=== PATIENT | male | born 1965 | race Caucasian/White ===

== ENCOUNTER 2019-08-10 09:55 | Emergency (ER) | payer MEDICAID ==
[2019-08-10 10:08] VITALS: BP 149/89
[2019-08-10 10:32] LABS: GLUCOSE, URINE (UA) NEGATIVE (NEGATIVE); KETONES,URINE (UA) TRACE mg/dL (NEGATIVE)
--- NOTE | 2019-08-10 10:32 | ED Physician Documentation ---
PD HPI MALE - Stated complaint Stated Complaint: BLOOD IN URINE - Chief complaint Chief Complaint: UTI - History obtained from History obtained from: Patient - History of Present Illness Timing - onset: How many days ago (3) Timing - duration: Days (3) Timing - details: Abrupt onset (He noted blood in his urine without any discomfort per se. This is continued for the last 3 days and noted clots in his urine last night and this morning. He denies any fever chills or flank pain. He has not had any nausea or vomiting. He denies any prior similar episodes.) Associated symptoms: Hematuria. No: Dysuria, Discharge PD HPI MALE CONTRIB FACTORS: Not sexually active Similar symptoms before: Has not had sx before Recently seen: Not recently seen Review of Systems Constitutional: denies: Fever, Chills, Myalgias GI: denies: Abdominal Pain, Nausea, Vomiting : denies: Discharge Skin: reports: Lesions (he has also had right index finger sore that drains pus and has some redness/swelling for few weeks. He has appt with PMD end of the month about this.) Musculoskeletal: denies: Back pain PD PAST MEDICAL HISTORY - Past Medical History Past Medical History: No - Past Surgical History Past Surgical History: No - Present Medications Home Medications: Ambulatory Orders Medication Instructions Recorded Confirmed Ibuprofen 600 mg PO Q6HR PRN #30 tablet 01/31/15 06/29/15 Clindamycin [Cleocin] 300 mg PO Q6H 7 Days capsule 06/29/15 HYDROcod/ACETAM 5/325 [[place] 5/325] 1 - 2 ea PO Q6H PRN #20 tablet 06/29/15 Naproxen Sodium [Aleve] 220 mg PO DAILY PRN 06/29/15 06/29/15 Mupirocin 1 applic TP TID #15 g 08/10/19 Sulfamethox/Trimeth 800/160 1 each PO BID #20 tablet 08/10/19 [Bactrim Ds 800/160] - Allergies Allergies/Adverse Reactions: Allergies Allergy/AdvReac Type Severity Reaction Status Date / Time No Known Drug Allergies Allergy Verified 08/10/19 10:08 - Social History Does the pt smoke?: Yes Smoking Status: Current every day smoker Does the pt drink ETOH?: Yes Does the pt have substance abuse?: No - Immunizations Immunizations are current?: Yes - POLST Patient has POLST: No PD ED PE NORMAL - Vitals Vital signs reviewed: Yes - General General: Alert and oriented X 3, Well developed/nourished - Abdomen Abdomen: Soft, Non tender - Male Male : Deferred - Back Back: No CVA TTP - Derm Derm: Normal color, Warm and dry - Extremities Extremities: Other (The right index finger has an area of swelling and redness at the distal phalanx with a small open sore. There is no fluctuance noted at that this time. There is localized tenderness. The redness does not extend to the base of the finger. He has good flexion and extension at the MCP and PIP joints. Limited at the DIP mostly due to swelling.) Results - Vitals Vitals: Vital Signs - 24 hr 08/10/19 08/10/19 10:04 10:15 Temperature 98.1 C H 98.1 C H Heart Rate 96 92 Respiratory 12 12 Rate Blood Pressure 149/89 H 149/89 H O2 Saturation 99 99 Oxygen O2 Source Room air - Labs Labs: Laboratory Tests 08/10/19 10:07 Urine Color BROWN Urine Clarity CLOUDY Urine pH 7.0 Ur Specific [place] 1.010 Urine Protein Urine Glucose (UA) NEGATIVE Urine Ketones TRACE Urine Occult Blood Urine Nitrite Urine Bilirubin COLOR INTERFERENCE Urine Urobilinogen Ur Leukocyte Esterase Urine RBC TNTC H Urine WBC >25 H Ur Squamous Epith Cells RARE Squamous Amorphous Sediment Moderate Urine Bacteria Moderate H Urine Casts 0-2 Hyaline Casts Ur Microscopic Review INDICATED Urine Culture Comments INDICATED PD MEDICAL DECISION MAKING - ED course Complexity details: reviewed results (The urine has copious blood but also has positive leukocytes and bacteria consistent with infection. I talked with the patient that infection is the most common cause for blood in the urine like this. However there would be concern for other bladder lesions that may associate with the bleeding to. He should follow-up with his primary care or urology for further evaluations or potential imaging studies or cystoscopy.), re-evaluated patient (The Bactrim for the bladder infection should also help treat the likely staph infection of the finger.), considered differential, d/w patient Departure - Departure Disposition: 01 Home, Self Care Clinical Impression: Hematuria, gross, Finger infection UTI (urinary tract infection) Qualifiers: Urinary tract infection type: acute cystitis Hematuria presence: with hematuria Qualified Code(s): N30.01 - Acute cystitis with hematuria Condition: Stable Record reviewed to determine appropriate education?: Yes Instructions: ED Staph Infec Abx Tx Only, ED UTI Cystitis Male Follow-Up: Pilo Arriaga MD [Provider Admit Priv/Credential] - Prescriptions: Mupirocin 1 applic TP TID #15 g Sulfamethox/Trimeth 800/160 [Bactrim Ds 800/160] 1 each PO BID #20 tablet Comments: There is signs of an infection in the urine, so that is the likely cause of the bleeding. We will treat the infection and see if the bleeding resolves. Follow up with Urology to see if there are other causes for the bleeding. The same antibiotic will likely help with the finger infection. Also apply m upirocin antibiotic ointment to the finger infection 2 to 3 times daily. Do this after soaking the finger in warm water for several minutes and try to promote continued drainage. Follow-up with your primary care end of the month as planned regarding the finger if is not fully resolved. Discharge Date/Time: 08/10/19 11:09
[2019-08-10 10:40] LABS: CLARITY,URINE CLOUDY (CLEAR)
[2019-08-10 10:42] LABS: BILIRUBIN,URINE COLOR INTERFERENCE (NEGATIVE); ICTOTEST,URINE POSITIVE
[2019-08-10 10:48] LABS: AMORPHOUS SEDIMENT,UR Moderate /LPF; BACTERIA,URINE Moderate /HPF (None Seen); CASTS, URINE 0-2 Hyaline Casts /LPF; RBC,URINE TNTC /HPF (0-5); SQUAMOUS EPITHELIAL CELL,UR RARE Squamous (<= Few)
[2019-08-10] MEDS ORDERED: MUPIROCIN 2% OINT 1 GM TOP STA (10:56)
[2019-08-10] MEDS ORDERED: SULFAMETH/TRIMETH DS 800/160 MG TABLET PO STA (10:56)
== END 2019-08-10 11:09 | disposition home or self-care (01) ==
LOC: ED 09:55
DX: N30.01 Acute cystitis with hematuria (principal); L08.9 Local infection of the skin and subcutaneous tissue, unspecified; F17.200 Nicotine dependence, unspecified, uncomplicated
CPT/HCPCS: 81001; 87086; 99283; 99284; A9270; 81003

== ENCOUNTER 2019-08-25 15:22 | Outpatient (CLI) | payer MEDICAID ==
--- NOTE | 2019-08-26 05:51 | XRAY Report ---
Reason: CELLULITIS Procedure Date: 08/25/2019 Accession Number: [id number] / [id number] Procedure: XRN - Hand 3 View RT CPT Code: Final Report FULL RESULT: EXAM: RIGHT HAND RADIOGRAPHY EXAM DATE: 08/25/2019 03:38 PM. CLINICAL HISTORY: 2 month history of second finger infection COMPARISON: XR FINGER MIN 2 VIEWS 11/17/2011 5:01 PM. TECHNIQUE: 3 views. FINDINGS: There is a well-defined lytic lesion in the proximal aspect of the distal second phalanx without cortical destruction. There is narrowing of the distal interphalangeal joint space and marked overlying soft tissue swelling. The remaining osseous structures are intact and well aligned. There is no evidence of fracture. IMPRESSION: Well-defined lytic lesion in the distal second phalanx with large amount of adjacent soft tissue edema without cortical destruction. 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 RADIA
== END 2019-08-25 15:23 | disposition home or self-care (01) ==
LOC: DI.N 15:22
PROVIDERS: ATTEND Internal Medicine
DX: M89.9 Disorder of bone, unspecified (principal); L03.90 Cellulitis, unspecified

== ENCOUNTER 2020-08-27 08:17 | Outpatient (CLI) | payer MEDICAID | END 2020-08-27 08:18 | disposition critical access hospital (66) | LOC: EMS 08:17 | PROVIDERS: ATTEND Surgery | DX: G47.00 Insomnia, unspecified (principal); R44.1 Visual hallucinations | CPT/HCPCS: A0425; A0429; A0999 ==

== ENCOUNTER 2020-08-27 08:49 | Emergency (ER) | payer MEDICAID ==
[2020-08-27 09:42] LABS: BASOPHILS % (AUTO) 0.6 %; EOSINOPHILS % (AUTO) 0.3 %; HGB - HEMOGLOBIN 13.6 g/dL (14.0-18.0); MEAN CORPUSCULAR HEMOGLOBIN 34.3 pg (27.0-31.0); MEAN CORPUSCULAR HGB CONC 33.3 g/dL (32.0-36.0); MEAN PLATELET VOLUME 9.9 fL (7.4-11.4); MONOCYTES # (AUTO) 0.5 10^3/uL (0.0-1.0); MONOCYTES % (AUTO) 8.2 %; NEUTROPHILS # (AUTO) 4.8 10^3/uL (1.5-6.6); NEUTROPHILS % (AUTO) 74.7 %; PLT - PLATELET COUNT 107 10^3/uL (130-450); RED BLOOD COUNT 3.97 10^6/uL (4.70-6.10); RED CELL DISTRIBUTION WIDTH 14.2 % (12.0-15.0); WHITE BLOOD COUNT 6.4 x10^3/uL (4.8-10.8)
[2020-08-27 09:59] LABS: ACETAMINOPHEN < 10 ug/mL (10-30); ALBUMIN 4.7 g/dL (3.2-5.5); ALBUMIN/GLOBULIN RATIO 1.2 (1.0-2.2); ALKALINE PHOSPHATASE 46 IU/L (42-121); ALT ALANINE AMINOTRANSFERASE 17 IU/L (10-60); AST ASPARTATE AMINOTRANSFERASE 44 IU/L (10-42); BILIRUBIN,TOTAL 1.3 mg/dL (0.2-1.0); BUN - BLOOD UREA NITROGEN 36 mg/dL (6-20); CALCIUM 9.6 mg/dL (8.5-10.3); CARBON DIOXIDE - CO2 22 mmol/L (21-32); CHLORIDE 96 mmol/L (101-111); GLUCOSE 98 mg/dL (70-100); LIPASE 30 U/L (22-51); SALICYLATE < 6.0 mg/dL; SODIUM 137 mmol/L (135-145); TOTAL PROTEIN 8.7 g/dL (6.7-8.2)
[2020-08-27 10:22] LABS: MUDS CUTOFF CONCENTRATIONS CUTOFF CONC BELOW:
[2020-08-27 10:30] LABS: GLUCOSE, URINE (UA) NEGATIVE (NEGATIVE); KETONES,URINE (UA) 15 mg/dL (NEGATIVE); LEUKOCYTE ESTERASE, URINE LARGE (NEGATIVE); NITRITE,URINE NEGATIVE (NEGATIVE); OCCULT BLOOD,URINE SMALL (NEGATIVE); PROTEIN,URINE 30 mg/dL (NEGATIVE); UROBILINOGEN,URINE 0.2 (NORMAL) E.U./dL (NORMAL)
[2020-08-27 10:38] LABS: BILIRUBIN,URINE NEGATIVE (NEGATIVE); CLARITY,URINE SL. CLOUDY (CLEAR); ICTOTEST,URINE NEGATIVE
[2020-08-27 10:40] LABS: COCAINE SCREEN URINE NEGATIVE (NEGATIVE); METHAMPHETAMINES SCREEN, URINE POSITIVE (NEGATIVE); OPIATE SCREEN, URINE POSITIVE (NEGATIVE)
[2020-08-27 10:41] LABS: AMPHETAMINE SCREEN,URINE POSITIVE (NEGATIVE); BENZODIAZEPINES SCREEN, URINE NEGATIVE (NEGATIVE); METHADONE SCREEN, URINE NEGATIVE (NEGATIVE); OXYCODONE SCREEN, URINE NEGATIVE (NEGATIVE); PROPOXYPHENE SCREEN, URINE NEGATIVE (NEGATIVE); TRICYCLIC ANTIDEPRESSANT,URINE NEGATIVE (NEGATIVE)
[2020-08-27 10:43] LABS: BACTERIA,URINE Moderate /HPF (None Seen); SQUAMOUS EPITHELIAL CELL,UR MOD Squamous (<= Few)
[2020-08-27 10:44] LABS: EPITHELIAL CELLS,UR RARE Renal Tubular /HPF (<= Few)
--- NOTE | 2020-08-27 15:05 | ED Physician Documentation ---
History of Present Illness - Stated complaint Stated Complaint: MHE - Chief complaint Chief Complaint: MHE - History obtained from History obtained from: Patient, Police - Additonal information Additional information: 55yM with pmh etoh and meth abuse p/w hallucinations from home. patient denies hallucinations however PD reported he called them stating someone was breaking into his house, and on arrival there was no one there but he had weapons in the home (crossbow and machete) laid out on the floor as well as wood shavings from [employer] he also was reportedly addressing internal stimuli on their arrival. he came voluntarily to the ed and states that he feels fine, denying si/hi/avh and stating only that he has not been getting enough sleep, sleeping 4h a night. last meth use reported was 5days ago and last etoh last night. denies other drug use. denies other issues. Review of Systems Ten Systems: 10 systems reviewed and negative PD PAST MEDICAL HISTORY - Past Medical History Past Medical History: No - Past Surgical History Past Surgical History: No - Present Medications Home Medications: Ambulatory Orders Medication Instructions Recorded Confirmed Ibuprofen 600 mg PO Q6HR PRN #30 tablet 01/31/15 06/29/15 Clindamycin [Cleocin] 300 mg PO Q6H 7 Days capsule 06/29/15 HYDROcod/ACETAM 5/325 [[place] 5/325] 1 - 2 ea PO Q6H PRN #20 tablet 06/29/15 Naproxen Sodium [Aleve] 220 mg PO DAILY PRN 06/29/15 06/29/15 Mupirocin 1 applic TP TID #15 g 08/10/19 Sulfamethox/Trimeth 800/160 1 each PO BID #20 tablet 08/10/19 [Bactrim Ds 800/160] - Allergies Allergies/Adverse Reactions: Allergies Allergy/AdvReac Type Severity Reaction Status Date / Time No Known Drug Allergies Allergy Verified 08/27/20 09:16 - Social History Does the pt smoke?: Yes Smoking Status: Current every day smoker Does the pt drink ETOH?: Yes Does the pt have substance abuse?: No - Immunizations Immunizations are current?: Yes - POLST Patient has POLST: No PD ED PE NORMAL - Vitals Vital signs reviewed: Yes - General General: Alert and oriented X 3 - HEENT HEENT: Atraumatic, PERRL, EOMI - Neck Neck: Supple, no meningeal sign - Cardiac Cardiac: RRR - Respiratory Respiratory: No respiratory distress, Clear bilaterally - Abdomen Abdomen: Non tender, Non distended - Male Male : Deferred - Rectal Rectal: Deferred - Back Back: No spinal TTP - Derm Derm: Normal color - Extremities Extremities: No deformity - Neuro Neuro: Alert and oriented X 3 - Psych Psych: Normal mood, Other (hyperactive affect) Results - Vitals Vitals: Vital Signs - 24 hr 08/27/20 09:00 Temperature 36.6 C Heart Rate 93 Respiratory 20 Rate Blood Pressure 133/76 H O2 Saturation 97 Oxygen O2 Source Room air - EKG (time done) 1528 Rate: Rate (enter#) (80) Rhythm: NSR [place]: Normal Intervals: Normal NC QRS: Normal Ischemia: Normal ST segments - Labs Labs: Laboratory Tests 08/27/20 08/27/20 08/27/20 09:39 09:39 09:39 WBC 6.4 RBC 3.97 L Hgb 13.6 L Hct 40.9 L MCV 103.0 H MCH 34.3 H MCHC 33.3 RDW 14.2 Plt Count 107 L MPV 9.9 Neut # (Auto) 4.8 Lymph # (Auto) 1.0 L [place] # (Auto) 0.5 Eos # (Auto) 0.0 Baso # (Auto) 0.0 Absolute Nucleated RBC 0.00 Nucleated RBC % 0.0 Sodium 137 Potassium 3.8 Chloride 96 L Carbon Dioxide 22 Anion Gap 19.0 H BUN 36 H Creatinine 1.0 Estimated GFR (MDRD) 78 L Glucose 98 Calcium 9.6 Total Bilirubin 1.3 H AST 44 H ALT 17 Alkaline Phosphatase 46 Total Protein 8.7 H Albumin 4.7 Globulin 4.0 Albumin/Globulin Ratio 1.2 Lipase 30 TSH 1.73 Urine Color Urine Clarity Urine pH Ur Specific [place] Urine Protein Urine Glucose (UA) Urine Ketones Urine Occult Blood Urine Nitrite Urine Bilirubin Urine Urobilinogen Ur Leukocyte Esterase Urine RBC Urine WBC Ur Epithelial Cells Ur Squamous Epith Cells Urine Bacteria Ur Microscopic Review Urine Culture Comments Salicylates < 6.0 Urine Opiates Screen Ur Oxycodone Screen Urine Methadone Screen Ur Propoxyphene Screen Acetaminophen < 10 L Ur Barbiturates Screen Ur Tricyclics Screen Ur Phencyclidine Scrn Ur Amphetamine Screen U Methamphetamines Scrn U Benzodiazepines Scrn Urine Cocaine Screen U Cannabinoids Screen Ethyl Alcohol < 5.0 08/27/20 10:17 WBC RBC Hgb Hct MCV MCH MCHC RDW Plt Count MPV Neut # (Auto) Lymph # (Auto) [place] # (Auto) Eos # (Auto) Baso # (Auto) Absolute Nucleated RBC Nucleated RBC % Sodium Potassium Chloride Carbon Dioxide Anion Gap BUN Creatinine Estimated GFR (MDRD) Glucose Calcium Total Bilirubin AST ALT Alkaline Phosphatase Total Protein Albumin Globulin Albumin/Globulin Ratio Lipase TSH Urine Color DARK YELLOW Urine Clarity SL. CLOUDY Urine pH 7.0 Ur Specific [place] 1.025 Urine Protein 30 H Urine Glucose (UA) NEGATIVE Urine Ketones 15 H Urine Occult Blood SMALL H Urine Nitrite NEGATIVE Urine Bilirubin NEGATIVE Urine Urobilinogen 0.2 (NORMAL) Ur Leukocyte Esterase LARGE H Urine RBC 6-10 H Urine WBC >25 H Ur Epithelial Cells RARE Renal Tubular Ur Squamous Epith Cells MOD Squamous H Urine Bacteria Moderate H Ur Microscopic Review INDICATED Urine Culture Comments NOT INDICATED Salicylates Urine Opiates Screen POSITIVE H Ur Oxycodone Screen NEGATIVE Urine Methadone Screen NEGATIVE Ur Propoxyphene Screen NEGATIVE Acetaminophen Ur Barbiturates Screen NEGATIVE Ur Tricyclics Screen NEGATIVE Ur Phencyclidine Scrn NEGATIVE Ur Amphetamine Screen POSITIVE H U Methamphetamines Scrn POSITIVE H U Benzodiazepines Scrn NEGATIVE Urine Cocaine Screen NEGATIVE U Cannabinoids Screen NEGATIVE Ethyl Alcohol PD MEDICAL DECISION MAKING - ED course ED course: 2:30pm- social work recommending DCR evaluation given his altered sensorium. will order covid swab for possible admission. 5pm - d/w DCR Kailey who states she is unable to detain patient given he is not currently exhibiting psychotic symptoms and most of his presentation appears to be directly attributable to meth. plan to dc home at this time with outpatient follow up for substance use/mental health. Departure - Departure Disposition: Home, Self Care Clinical Impression: Methamphetamine abuse Condition: Good Instructions: ED Drug Abuse General Comments: You have been seen in the emergency department for medical screening exam related to your methamphetamine use. These avoid alcohol, meth, and other drugs. Return to the ED if you have thoughts of killing yourself, killing others, or feel out of control, are having hallucinations or other concerns. [facility] Website Directions [address], [place] [address] ~15.9 mi
[2020-08-27 17:03] VITALS: BP 140/83
== END 2020-08-27 17:30 | disposition home or self-care (01) ==
LOC: EDUNIT# → ED 08:49
DX: F15.10 Other stimulant abuse, uncomplicated (principal); F17.200 Nicotine dependence, unspecified, uncomplicated
CPT/HCPCS: 0202U; 36415; 80053; 80306; 80307; 80320; 80329; 81001; 81003; 83690; 84443; 85025; 87086; 93005; 99281; 99284

== ENCOUNTER 2022-06-04 12:15 | Emergency (ER) | payer MEDICAID ==
[2022-06-04 12:24] VITALS: BP 187/94
--- OUTSIDE RECORDS SUMMARY | 2022-06-04 13:03 | EXTERNAL MEDICAL SUMMARY RPT | Continuity of Care Document ---
:1965 Author Organization [facility] Address [address] [place] [address] Phone Allergies and Intolerances date description facility type (no date) No Known Drug Allergies [facility] (unkn own) Encounters No information. Functional Status No information. Immunizations No information. Medications No information. Problems No information. Procedures No information. Results/Labs test date author facility value unit interpret ation Result panel 1 (unknown) (no date) (unknown) (unknown) 0.8 % (unkn own) (unknown) (no date) (unknown) (unknown) 1.2 % (unkn own) (unknown) (no date) (unknown) (unknown) 100 /ul (unkn own) (unknown) (no date) (unknown) (unknown) 100 /ul (unkn own) (unknown) (no date) (unknown) (unknown) 102.8 fl (unkn own) (unknown) (no date) (unknown) (unknown) 13.5 % (unkn own) (unknown) (no date) (unknown) (unknown) 13.5 g/dl (unkn own) (unknown) (no date) (unknown) (unknown) 144 x10 3/ul (unkn own) (unknown) (no date) (unknown) (unknown) 1500 /ul (unkn own) (unknown) (no date) (unknown) (unknown) 20.8 % (unkn own) (unknown) (no date) (unknown) (unknown) 3.88 x10 6/ul (unkn own) (unknown) (no date) (unknown) (unknown) 33.9 % (unkn own) (unknown) (no date) (unknown) (unknown) 34.9 pg (unkn own) (unknown) (no date) (unknown) (unknown) 39.9 % (unkn own) (unknown) (no date) (unknown) (unknown) 500 /ul (unkn own) (unknown) (no date) (unknown) (unknown) 5200 /ul (unkn own) (unknown) (no date) (unknown) (unknown) 6.7 % (unkn own) (unknown) (no date) (unknown) (unknown) 7.3 x10 3/ul (unkn own) (unknown) (no date) (unknown) (unknown) 70.5 % (unkn own) Result panel 2 (unknown) (no date) (unknown) (unknown) > 60 ml/min (unkn own) (unknown) (no date) (unknown) (unknown) > 60 ml/min (unkn own) (unknown) (no date) (unknown) (unknown) 0.4 mg/dl (unkn own) (unknown) (no date) (unknown) (unknown) 0.66 mg/dl (unkn own) (unknown) (no date) (unknown) (unknown) 1.2 (units unknown) (unknown) (unknown) (no date) (unknown) (unknown) 1.5 mmol/l (unkn own) (unknown) (no date) (unknown) (unknown) 10.6 (units unknown) (unknown) (unknown) (no date) (unknown) (unknown) 105 mmol/l (unkn own) (unknown) (no date) (unknown) (unknown) 140 mmol/l (unkn own) (unknown) (no date) (unknown) (unknown) 22 mmol/l (unkn own) (unknown) (no date) (unknown) (unknown) 23 iu/l (unkn own) (unknown) (no date) (unknown) (unknown) 3.8 g/dl (unkn own) (unknown) (no date) (unknown) (unknown) 4.2 mmol/l (unkn own) (unknown) (no date) (unknown) (unknown) 4.4 g/dl (unkn own) (unknown) (no date) (unknown) (unknown) 47 iu/l (unkn own) (unknown) (no date) (unknown) (unknown) 6.5 mg/dl (unkn own) (unknown) (no date) (unknown) (unknown) 7 mg/dl (unkn own) (unknown) (no date) (unknown) (unknown) 79 u/l (unkn own) (unknown) (no date) (unknown) (unknown) 8.2 g/dl (unkn own) (unknown) (no date) (unknown) (unknown) 8.8 mg/dl (unkn own) (unknown) (no date) (unknown) (unknown) 93 mg/dl (unkn own) (unknown) (no date) (unknown) (unknown) 93 mg/dl (unkn own) Social History No information. Vital Signs No information.
--- NOTE | 2022-06-04 13:04 | XRAY Report ---
PROCEDURE: Hand 3 View RT INDICATIONS: Trauma TECHNIQUE: 3 views of the hand(s) acquired. COMPARISON: None FINDINGS: Bones: No definite acute fracture visualized. Chronic appearing deformity of the second digit DIP ubaldo nt. Some cortical irregularity and possible periosteal reaction present in this area. Soft tissue swe lling also demonstrated in this region. Periarticular degenerative changes present Remote fracture deformity fifth metacarpal Soft tissues: No suspicious soft tissue calcifications. IMPRESSION: 1. No definite acute fracture visualized. 2. Overall chronic appearing deformity of the second digit DIP joint, however there is possible corti sumanth irregularity and possible periosteal reaction present in this area. Correlation for evidence of i nfection may be helpful, osteomyelitis not excludable. Reviewed by: Gigi Acuña MD on 06/04/2022 1:03 PM PDT Approved by: Gigi Acuña MD on 06/04/2022 1:03 PM PDT Station ID: [id number]
[2022-06-04] MEDS ORDERED: BUPIVACAINE 0.5% PF 10 ML VIAL SUBQ STA (15:22)
--- NOTE | 2022-06-04 15:28 | ED Physician Documentation ---
PD HPI UPPER EXT INJURY - Stated complaint Stated Complaint: SWOLLEN FINGER - Chief complaint Chief Complaint: Ext Problem - History obtained from History obtained from: Patient - Additonal information Additional information: 57-year-old gentleman who is right-hand dominant. 3 years ago he was rescuing a cat from a tree and sustained a cat bite to the distal right dominant second finger. It sounds like he got osteomyelitis and required a few debridements since then. Last surgery about a year ago. About 3 to 4 days ago started to get increasing pain and swelling to that same digit. No fevers. He tried to call his hand surgeon for an appointment, he needs a new referral. He tried calling his PCP and they need to see him first. Review of Systems Constitutional: reports: Reviewed and negative Cardiac: reports: Reviewed and negative Respiratory: reports: Reviewed and negative PD PAST MEDICAL HISTORY - Past Surgical History Past Surgical History: No - Present Medications Home Medications: Ambulatory Orders Medication Instructions Recorded Confirmed Ibuprofen 600 mg PO Q6HR PRN #30 tablet 01/31/15 06/29/15 Clindamycin [Cleocin] 300 mg PO Q6H 7 Days capsule 06/29/15 HYDROcod/ACETAM 5/325 [[place] 5/325] 1 - 2 ea PO Q6H PRN #20 tablet 06/29/15 Naproxen Sodium [Aleve] 220 mg PO DAILY PRN 06/29/15 06/29/15 Mupirocin 1 applic TP TID #15 g 08/10/19 Sulfamethox/Trimeth 800/160 1 each PO BID #20 tablet 08/10/19 [Bactrim Ds 800/160] Amox/Clav 875/125 [Augmentin] 1 each PO Q12H #20 tablet 06/04/22 HYDROcod/ACETAM 5/325 [[place] 5/325] 1 - 2 tab PO Q6H PRN #15 tablet 06/04/22 - Allergies Allergies/Adverse Reactions: Allergies Allergy/AdvReac Type Severity Reaction Status Date / Time No Known Drug Allergies Allergy Verified 08/27/20 09:16 - Social History Does the pt smoke?: Yes Smoking Status: Current every day smoker Does the pt drink ETOH?: Yes Does the pt have substance abuse?: No - Immunizations Immunizations are current?: Yes - POLST Patient has POLST: No PD ED PE NORMAL - Vitals Vital signs reviewed: Yes - General General: Alert and oriented X 3, No acute distress - Extremities Extremities: Other (There is a chronic deformity of the right second finger with cellulitis around the dorsal DIP and distal. There is a sensation of fluctuance under this. Good range of motion.) - Neuro Neuro: Alert and oriented X 3, Normal speech Results - Vitals Vitals: Vital Signs - 24 hr 06/04/22 12:21 Temperature 36.8 C Heart Rate 81 Respiratory 18 Rate Blood Pressure 187/94 H O2 Saturation 99 Oxygen O2 Source Room air - Rads (name of study) R 2nd finger abscess Radiology: EMP read contemporaneously (poss osetomyelitis distal phalanx) Procedures - Abscess I&D (location) R index Preparation: Marcaine 0.5% (digital block with excellent anesthesia) Incision: Incised with scalpel, Purulent drainage, Packed (with 1/4 inch packing), Culture obtained Other: Pt tolerated well, Dressing applied, Antibiotic prescribed PD MEDICAL DECISION MAKING - ED course ED course: I spoke with Dr. Montenegro on-call for Dr. Analilia Pool given that he is having trouble getting a referral. The were optimistic that they would be able to see him tomorrow. 57-year-old gentleman with chronic recurrent osteomyelitis of the distal phalanx of the second right finger. Increased pain and swelling over the last few days. The finger was sterilely prepped and draped in standard fashion. A Digital block was done and then an incision, a small incision was made just distal to the DIP longitudinally dorsally. Pus flowed out and the wound was explored with hemostats. The bone and there was very soft, and wick was left in and a dressing was placed. Hopefully he will be able to see his hand surgeon next few days but in the meantime we will cover him with Augmentin given the original insult which was a cat bite a culture was taken. He is advised that if he cannot see his hand surgeon by the weekend he should return here for wound check on Thursday. Departure - Departure Disposition: 01 Home, Self Care Clinical Impression: Osteomyelitis of finger of right hand Abscess of finger Qualifiers: Laterality: right Qualified Code(s): L02.511 - Cutaneous abscess of right hand Condition: Good Record reviewed to determine appropriate education?: Yes Instructions: ED Abscess IandD Prescriptions: Amox/Clav 875/125 [Augmentin] 1 each PO Q12H #20 tablet HYDROcod/ACETAM 5/325 [[place] 5/325] 1 - 2 tab PO Q6H PRN #15 tablet PRN Reason: Pain Comments: I spoke with Dr. Pool's partner today, they are going to try to see you tomorrow. I would call first thing in the morning. My wound care we are performing a wound culture, the results should be done in 48-72 hours. If antibiotic change is necessary we will call you. Return if worse in the meantime, especially if you develop increased pain, fevers, cannot keep down the medication. Otherwise follow-up with your physician in approximately 2-3 days. If you are unable to follow-up with the hand surgeon within the next 2 days come see me Thursday afternoon for wound check. I sent your prescriptions electronically to [facility] in [place]. I am prescribing a short course of narcotic pain medication for you. These are potentially dangerous and addictive medications that should be used carefully. These medications may constipate you. Take an [id number]-[id number] stool softener (docusate) twice daily with plenty of water while taking these medications. If you go 24 hours without a bowel movement, take [id number] miralax, per package instructions. Do not drink or drive while taking these medications. If you received narcotic or sedating medications while in the emergency department, do not drive for 24 hours. Store this medication in a safe, secure place and out of reach of children. It is a violation of federal law to give or sell this medication to another person or to use in a manner other than prescribed. The ED will not refill narcotic prescriptions, including prescriptions lost or stolen. To dispose of unwanted medications: 1. [facility] at [address] [facility] in [place] has a medication drop box. They accept prescription medications (in pill form) Thursday through Thursday 9:00 a.m. to 5:00 p.m. 2. The [facility] accepts prescription medications (in pill form only) for disposal year round. Call for more information. 3. Contact the [facility] for the next [facility] sponsored prescription drug collection event. , [phone], or [phone]; Note that many narcotic pain relievers also contain Tylenol/acetaminophen. Please ensure that your total dose of acetaminophen from all sources does not exceed 3 g (3000 mg) per day.
[2022-06-04] MEDS ORDERED: AMOX/CLAV 875 MG/125 MG TABLET PO STA (15:46)
== END 2022-06-04 16:29 | disposition home or self-care (01) ==
LOC: ED 12:15
DX: M86.9 Osteomyelitis, unspecified (principal); L02.511 Cutaneous abscess of right hand; W55.01XA Bitten by cat, initial encounter; F17.200 Nicotine dependence, unspecified, uncomplicated
CPT/HCPCS: 26010; 73130; 87070; 87077; 87181; 87205; 99283; 99284; A9270